=== PATIENT | male | born 1965 | race Caucasian/White ===

== ENCOUNTER 2016-11-08 09:20 | Outpatient (CLI) | payer MEDICAID ==
[~2016-11-08] VITALS: Ht 170.2 cm; Wt 117.3 kg
[~2016-11-08 09:20] MED LIST: ALB0.5V; ATEN-155; ATOR10TA; CLON1TAB36; DICY20TA57; EZET1TAB44; FENO145T2; MULT-608; OMEP-10; OXC5T; OXYC20TA4; SERT100T
[2016-11-08] MEDS ORDERED: ALBU90AE IH (09:36)
[2016-11-08] MEDS ORDERED: PANT40TA2 PO (09:36)
[2016-11-08] MEDS ORDERED: RANI300T6 PO (09:36)
[2016-11-08] MEDS ORDERED: ASPI-586 PO (09:36)
[2016-11-08] MEDS ORDERED: EXEN2VIA SQ (09:36)
[2016-11-08] MEDS ORDERED: ALPR0.5T PO (09:36)
[2016-11-08] MEDS ORDERED: TRAM50TA2 PO (09:36)
[2016-11-08] MEDS ORDERED: IBUP200C75 PO (09:36)
[2016-11-08 09:43] VITALS: BP 126/84
== END 2016-11-08 10:01 | disposition home or self-care (01) ==
LOC: PREOP 09:20
PROVIDERS: ATTEND Orthopaedic Surgery
DX: Z01.818 Encounter for other preprocedural examination (principal); Z11.2 Encounter for screening for other bacterial diseases; M75.42 Impingement syndrome of left shoulder
CPT/HCPCS: 87081

== ENCOUNTER 2016-11-14 06:05 | Day surgery (SDC) | payer MEDICAID ==
--- NOTE | 2016-11-06 12:25 | HISTORY AND PHYSICAL ---
DATE OF SERVICE: LAST-FOUR SOCIAL SECURITY: 5454. REASON FOR ADMISSION: Outpatient surgery on 11/14/16 for left shoulder arthroscopy with rotator cuff repair. HISTORY OF PRESENT ILLNESS: The patient is a 51-year-old right-hand dominant gentleman who injured his left shoulder when a shelf fell. He caught it with his left arm and felt a tearing sensation in his left shoulder. He reports no antecedent pain. He reports pain with lifting his arm with overhead activities. He worked on a home exercise program without relief. An MRI relieved a full-thickness supraspinatus tear and due to functional impairment and failure to improve with conservative measures, the patient has elected to proceed with surgical intervention. REVIEW OF SYSTEMS: No chest pain. No shortness of breath. No dysuria. PAST MEDICAL HISTORY: Irritable bowel syndrome, restless leg syndrome, chronic bronchitis, and obesity. PAST SURGICAL HISTORY: Lung, right distal clavicle excision, right knee arthroscopy, right elbow internal fixation, and cholecystectomy. FAMILY HISTORY: Significant for cancer, diabetes, hypertension. PRIMARY CARE PROVIDER: Dr. Flanagan. MEDICATIONS: Ibuprofen, alprazolam, Bydureon, ranitidine, pantoprazole, ProAir, aspirin and hydrocodone. ALLERGIES: BIAXIN, CHANTIX, MORPHINE AND ZITHROMAX, BEE VENOM. SOCIAL HISTORY: The patient is a former smoker. He denies alcohol use. PHYSICAL EXAMINATION: GENERAL: The patient is well-developed and well-nourished, in no acute distress. HEENT: Normocephalic, atraumatic. Pupils are equal, round and reactive to light. Oropharynx is clear. NECK: Supple with no lymphadenopathy. LUNGS: Clear to auscultation bilaterally. HEART: Regular rate and rhythm. ABDOMEN: Soft, nontender, and nondistended. EXTREMITIES: The left shoulder demonstrates no atrophy. He has active forward elevation of 170 degrees, but painful beyond 90. External rotation is symmetric at 70 degrees. Internal rotation is to his upper lumbar spine. He has weakness with abduction and external rotation in the left shoulder. He has a positive Neer's and positive Cummins sign. He is nontender over his acromioclavicular joint and has no pain with cross-body adduction. IMPRESSION: Left shoulder rotator cuff tear. PLAN: Left shoulder arthroscopy, acromioplasty, and open rotator cuff repair. The risks, benefits, options, ramifications, and recovery have been discussed at length with the patient. He understands and wishes to proceed. Job ID: [id number] DocumentID: [id number] Dictated Date: 11/06/2016 09:22:26 Keg Varnisher Date: 11/06/2016 10:23:29 Dictated By: IVETTE BARNETT MD
[~2016-11-14] VITALS: Ht 170.2 cm; Wt 117.3 kg
[~2016-11-14 06:05] MED LIST changes: +ALBU90AE IH; +ALPR0.5T PO; +ASPI-586 PO; +EXEN2VIA SQ; +IBUP200C75 PO; +PANT40TA2 PO; +RANI300T6 PO; +TRAM50TA2 PO
[2016-11-14] MEDS ORDERED: NS (IVPB) 50 ML ONE (06:30)
[2016-11-14] MEDS ORDERED: ceFAZolin 1,000 MG (ANCEF) VIAL ONE (06:30)
[2016-11-14] MEDS ORDERED: FAMOTIDINE 20MG/2ML IV (PEPCID) ONE (06:31)
[2016-11-14] MEDS ORDERED: LACTATED RINGERS 1,000 ML IV PRN (06:46)
[2016-11-14] MEDS: LACTATED RINGERS 1,000 ML IV PRN ×2 (06:48→08:40)
[2016-11-14] MEDS ORDERED: ROPIVACAINE 5MG/ML 30ML VIAL ONE (06:51)
[2016-11-14 07:00] VITALS: BP 145/90
[2016-11-14] MEDS ORDERED: FAMOTIDINE 20MG/2ML IV (PEPCID) IV ONE (07:00)
[2016-11-14] MEDS ORDERED: ceFAZolin 1 GM/NS 50 ML IVPB IV ONE ×2 (07:00)
[2016-11-14] MEDS ORDERED: CATHETER FLUSH 10 ML SYR IV PRN (07:00)
--- NOTE | 2016-11-14 07:29 | Progress Note-Pre Operative ---
Pre-Operative Progress Note H&P Reviewed The H&P was reviewed, patient examined and no changes noted. Date Seen by Provider: Nov 14, 2016 Time Seen by Provider: 07:11 Date H&P Reviewed: Nov 14, 2016 Time H&P Reviewed: 07:11 Pre-Operative Diagnosis: LEFT ROTATOR CUFF TEAR IVETTE BARNETT MD Nov 14, 2016 07:29
[2016-11-14] MEDS ORDERED: oxyCODONE/APAP 5/325MG (PERCOCET 5) TABLET PO PRN (07:30)
--- NOTE | 2016-11-14 07:30 | Progress Note-Post Operative ---
Post-Operative Progess Note Surgeon (s)/All Around Gear Machine Operator (s) Surgeon IVETTE BARNETT MD All Around Gear Machine Operator: Sharif Pearce Pre-Operative Diagnosis LEFT ROTATOR CUFF TEAR Post-Operative Diagnosis left rotator cuff tear, SLAP tear, and labral tear Procedure & Operative Findings Date of Procedure 11/14/16 Procedure Performed/Findings left shoulder arthroscopic biceps tenotomy, labral debridement, acromioplasty and open rotator cuff repair Anesthesia Type GETA plus interscalene Estimated Blood Loss Estimated blood loss (mL): minimal Specimens/Packing Specimens Removed none Packing: none IVETTE BARNETT MD Nov 14, 2016 07:30
[2016-11-14] MEDS ORDERED: ESMOLOL 100 MG/10 ML (BREVIBLOC) VIAL ONE (08:16)
[2016-11-14] MEDS ORDERED: PHENYLEPHRINE 100 MCG/ML 10 ML (ANESTHESIA) SYR ONE (08:26)
[2016-11-14] MEDS ORDERED: GLYCOPYRROLATE 0.2 MG/ML (ROBINUL) 2 ML VIAL ONE (08:45)
[2016-11-14] MEDS ORDERED: NEOSTIGMINE (BLOXIVERZ ) 1 MG/1ML 10 ML VIAL ONE (08:45)
[2016-11-14] MEDS ORDERED: LACTATED RINGERS 2,000 ML IV ONE (08:45)
[2016-11-14] MEDS ORDERED: HYDROmorphone (DILAUDID) 2 MG/ML VIAL ONE (09:03)
[2016-11-14] MEDS: HYDROmorphone (DILAUDID) 2 MG/ML VIAL IVP PRN ×4 (09:10→09:37)
[2016-11-14] MEDS ORDERED: MEPERIDINE (DEMEROL) INJ 50 MG/ML IVP PRN (09:15)
[2016-11-14] MEDS ORDERED: ONDANSETRON 4 MG/2 ML (SDV) Z0FRAN IVP PRN (09:15)
[2016-11-14 09:55] VITALS: BP 139/88
[2016-11-14 10:25] VITALS: BP 134/98
[2016-11-14] MEDS ORDERED: OXYC-471 PO (10:29)
[2016-11-14 10:55] VITALS: BP 128/90
--- NOTE | 2016-11-14 13:03 | OPERATIVE REPORT ---
DATE OF SERVICE: 11/14/2016 PREOPERATIVE DIAGNOSIS: Left shoulder rotator cuff tear. POSTOPERATIVE DIAGNOSES: 1. Left shoulder rotator cuff tear. 2. Left shoulder SLAP tear. 3. Left shoulder labral tear. PROCEDURES: 1. Left shoulder arthroscopic biceps tenotomy. 2. Left shoulder arthroscopic labral debridement. 3. Left shoulder arthroscopic acromioplasty. 4. Left shoulder open rotator cuff repair. SURGEON: Thad Barnett MD WARP DRESSER: DOMINICK Galeas, who assisted throughout the procedure and closed the incisions. ANESTHESIA: General endotracheal plus interscalene nerve block as per my request for postoperative pain management by Dr. Hobson. ESTIMATED BLOOD LOSS: Minimal. DRAINS: None. COMPLICATIONS: None. POSTOPERATIVE PLAN: Passive range of motion and sling wear for 4 weeks. The patient was transported to the recovery room awake and in stable condition. STATEMENT OF MEDICAL NECESSITY: The patient is a 51-year-old [id number] gentleman who injured his left shoulder when a shelf fell and felt a tearing sensation and his left shoulder has had weakness since that point. An MRI confirmed a full thickness supraspinatus tear and due to weakness and functional impairment and failure to improve with conservative measures, the patient elected to proceed with operative intervention. Examination under anesthesia revealed forward elevation of 170 degrees, external rotation of 85 degrees, and internal rotation of 75 degrees. Arthroscopic findings demonstrated a 1 x 1 cm supraspinatus full thickness tear. There was a type 2 SLAP tear with a flap tear of the anterior labrum from the 9 to 12 o'clock positions. The glenoid and humeral head demonstrated no gross chondral abnormalities. The remainder of the labrum was intact. Subacromial space demonstrated moderate bursitis with sloping of the anterior and lateral acromion. PROCEDURE IN DETAIL: After risks and benefits of procedure were discussed and questions were answered, an informed consent was signed and placed on the chart. The operative site was confirmed in the preoperative holding area initialed by the surgeon. The patient was then transported to the operating room and after adequate levels of general endotracheal anesthetic were obtained, a timeout was called, confirmed the operative site. The left upper extremity was then prepped and draped in the usual sterile fashion. The shoulder joint was injected with 20 mL of fluid, as was the subacromial space and a standard posterior portal was placed and under direct visualization, anterior portal was created in the interval between the biceps, subscapularis and glenoid. The biceps anchor was released and the stump was debrided with the shaver. The anterior labral flap was debrided with the shaver back to the stable edge as well. The scope was then redirected into the subacromial space and a lateral portal was created and bursectomy was performed. The acromion was planed to a flat type 1 acromion. The lateral port was then extended. The deltoid was split in line with leaving attached to the acromion. The rotator cuff was mobilized and a single was placed and modified Andrea-Woodrow repair was performed with an excellent repair obtained. No undue tension was noted at the arm at the side. The wound was copiously irrigated. The deltoid was repaired in aghs-jr-zryt fashion using #2 FiberWire in [id number] interrupted fashion. The wound was further irrigated, 2-0 Vicryl was used to reapproximate the subcutaneous tissues and skin was closed with 4-0 nylon in a running alternating horizontal mattress fashion. The port sites were closed with 4-0 nylon in a simple interrupted fashion. The incisions were infiltrated with plain Marcaine. A soft dressing and sling were applied and the patient was transported to the recovery room awake and in stable condition. Job ID: [id number] DocumentID: [id number] Dictated Date: 11/14/2016 08:59:25 Stock Wetter Date: 11/14/2016 11:11:40 Dictated By: THAD BARNETT MD
[2016-11-14] MEDS ORDERED: SEVOFLURANE (ULTANE) 15 ML INHAL SOLN ONE (14:30)
[2016-11-14] MEDS ORDERED: proPOfol 200 MG/20 ML (DIPRIVAN) VIAL IV ONE (14:30)
[2016-11-14] MEDS ORDERED: ROCURONIUM 50 MG/5 ML (ZEMURON) VIAL IV ONE (14:30)
[2016-11-14] MEDS ORDERED: fentaNYL INJECTION 100 MCG/2 ML AMP ONE (14:31)
[2016-11-14] MEDS ORDERED: MIDAZOLAM 2 MG/2 ML (VERSED) VIAL ONE (14:31)
[2016-11-14] MEDS ORDERED: ONDANSETRON 4 MG/2 ML (SDV) Z0FRAN ONE (14:32)
--- OUTSIDE RECORDS SUMMARY | 2016-11-15 17:56 | XMS REPORT ---
Author Author IVETTE VIDES [facility] Address [address] [place], [place] [id number] Care Team Providers Care Educational Sign Language Interpreter Name Role Phone IVETTE VIDES PCP Unavailable Allergies and Adverse Reactions Name Reaction Notes morphine anaphylaxis azithromycin anaphylaxis Biaxin anaphylaxis Chantix Rash Lyrica Swelling Plan of Treatment Not available. Medications Active Name Start Date Estimated Completion Date SIG Comments Tricor 48 mg oral tablet 01/16/2015 02/15/2015 take 1 tablet by oral route daily for 30 days Protonix 40 mg oral tablet,delayed release (DR/EC) 01/16/2015 03/17/2015 take 1 tablet (40 mg) by oral route once daily for 30 days Aspir-81 81 mg oral tablet,delayed release (DR/EC) 01/16/2015 02/15/2015 take 1 tablet (81 mg) by oral route once daily for 30 days [place] 5-325 mg oral tablet 01/16/2015 02/15/2015 take 1 tablet by oral route every 6 hours as needed for pain for 30 days Xanax 0.5 mg oral tablet 01/16/2015 02/15/2015 1/2 to 1 twice daily as needed for anxiety must last 30 days Celexa 40 mg oral tablet 01/16/2015 03/17/2015 take 1 tablet by oral route daily for 30 days Abilify 30 mg oral tablet 01/16/2015 02/15/2015 take 1 tablet by oral route daily for 30 days meloxicam 7.5 mg oral tablet 01/16/2015 02/15/2015 take 1 tablet (7.5 mg) by oral route once daily for 30 days Problem List Description Status Onset Depressive Disorder Active 01/16/2015 Anxiety Disorder Active 01/16/2015 Chronic pain Active 01/16/2015 Low Back Pain Active 01/16/2015 Hyperlipidemia, unspecified Active 01/16/2015 Gastroesophageal Reflux Active 01/16/2015 Vital Signs Date Time BP-Sys(mm[Hg] BP-Charlene(mm[Hg]) HR(bpm) RR(rpm) Temp WT HT HC BMI BSA BMI Percentile O2 Sat(%) 01/04/2015 9:19:00 AM 140 mmHg 80 mmHg 72 bpm 18 rpm 97.2 F 188 lbs 67 in 29.44 kg/m2 2.01 m2 98 % Social History Name Description Comments smoking Current every day Alcohol Never Uses seatbelts Current every day Exercises regularly Current every day History of Procedures Not available. Results Summary Not available. History Of Immunizations Not available. History of Past Illness Name Date of Onset Comments Depressive Disorder 01/16/2015 Anxiety Disorder 01/16/2015 Chronic pain 01/16/2015 Low Back Pain 01/16/2015 Hyperlipidemia, unspecified 01/16/2015 Gastroesophageal Reflux 01/16/2015 Hemorrhoids Arthritis COPD (chronic obstructive pulmonary disease) indigestion Gastroesophageal Reflux Jan 04 2015 9:20AM Hyperlipidemia, unspecified Jan 04 2015 9:20AM Low Back Pain Jan 04 2015 9:20AM Chronic pain Jan 04 2015 9:20AM Anxiety Disorder Jan 04 2015 9:20AM Depressive Disorder Jan 04 2015 9:20AM Payers Not available. History of Encounters Visit Date Visit Type Provider 01/04/2015 Office visit IVETTE LEVINE
--- OUTSIDE RECORDS SUMMARY | 2016-11-15 17:56 | XMS REPORT ---
Author Author IVETTE VIDES [facility] Address [address] [place], [place] [id number] Care Team Providers Care Family Medicine Physician Name Role Phone IVETTE VIDES PCP Unavailable Allergies and Adverse Reactions Name Reaction Notes morphine anaphylaxis azithromycin anaphylaxis Biaxin anaphylaxis Chantix Rash Lyrica Swelling Plan of Treatment Not available. Medications Active Name Start Date Estimated Completion Date SIG Comments Xanax 0.5 mg oral tablet 03/02/2015 04/01/2015 1/2 to 1 twice daily as needed for anxiety must last 30 days Name Start Date Expiration Date SIG Comments Tricor 48 mg oral [...] oral route once daily for 30 days [place] 5-325 mg oral tablet 01/16/2015 02/15/2015 take 1 tablet by oral route every 6 hours as needed for pain for 30 days Celexa 40 mg oral tablet [...] unspecified Active 01/16/2015 Gastroesophageal Reflux Active 01/16/2015 Tobacco Abuse Active 03/21/2015 Vital Signs Date Time BP-Sys(mm[Hg] BP-Charlene(mm[Hg]) HR(bpm) RR(rpm) Temp WT HT HC BMI BSA BMI Percentile O2 Sat(%) 03/10/2015 9:17:00 AM 145 mmHg 70 mmHg 86 bpm 16 rpm 99.4 F 205 lbs 67 in 32.11 kg/m2 2.10 m2 98 % 01/04/2015 9:19:00 AM 140 mmHg 80 mmHg 72 bpm 18 rpm 97.2 F 188 lbs 67 in 29.4447 kg/m 2.0078 m 98 % Social History Name Description Comments smoking Current every day Alcohol Never Uses seatbelts Current every day Exercises regularly Current every day History of Procedures Date Ordered Description Order Status 03/10/2015 12:00 AM COMPLETE CBC W/AUTO DIFF WBC Returned 03/10/2015 12:00 AM COMPREHEN METABOLIC PANEL Returned 03/10/2015 12:00 AM LIPID PANEL Returned 03/10/2015 12:00 AM ROUTINE VENIPUNCTURE Reviewed Results Summary Data and Description Results 03/10/2015 3:53 PM WBC 9.2 RBC 5.26 HGB 17.30 g/dLHCT 49.40 %MCV 94.0 fLMCH 32.90 pgMCHC 35.0 g/dLRDW CV 13.40 %MPV 10.10 fLPLT 177 %NEUT 73.20 %%LYMP 18.10 %%MONO 5.50 %%EOS 3.0 %%BASO 0.20 %#NEUT 6.75 #LYMP 1.67 #MONO 0.51 #EOS 0.28 #BASO 0.02 GLUCOSE 107.0 mg/dLSODIUM 136.0 mmol/LPOTASSIUM 4.30 mmol/ LCHLORIDE 103.0 mmol/LCO2 27.0 mmol/LBUN 10.0 mg/dLCREATININE 0.80 mg/dLSGOT/ AST 14.0 IU/LSGPT/ALT 14.0 IU/LALK PHOS 49.0 IU/LTOTAL PROTEIN 6.60 g/dLALBUMIN 4.10 g/dLTOTAL BILI 0.80 mg/dLCALCIUM 9.30 mg/dLeGFR >60 mL/min/1.73m TRIGLYCERIDES 148.0 mg/dLCHOLESTEROL 256.0 mg/dLHDL 43.0 mg/dLLDL (CALC) 183.0 mg/dL History Of Immunizations Not available. History of Past Illness Name Date of Onset Comments Depressive Disorder 01/16/2015 Anxiety Disorder 01/16/2015 Chronic pain 03/21/2015 Low Back Pain 01/16/2015 Hyperlipidemia, unspecified 01/16/2015 Gastroesophageal Reflux 01/16/2015 Hemorrhoids Arthritis COPD (chronic obstructive pulmonary disease) indigestion Tobacco Abuse 03/21/2015 Gastroesophageal Reflux Jan 04 2015 9:20AM Hyperlipidemia, unspecified Jan 04 2015 9:20AM Low Back Pain Jan 04 2015 9:20AM Chronic pain Jan 04 2015 9:20AM Anxiety Disorder Jan 04 2015 9:20AM Depressive Disorder Jan 04 2015 9:20AM Fatigue Mar 10 2015 11:16AM Hyperlipemia Mar 10 2015 11:16AM Diabetes Mellitus, Type II Mar 10 2015 9:18AM Hyperlipidemia, unspecified Mar 10 2015 9:18AM Low Back Pain Mar 10 2015 9:18AM Chronic pain Mar 10 2015 9:18AM Depressive Disorder Mar 10 2015 9:18AM Tobacco Abuse Mar 10 2015 9:18AM Dietary Counseling Mar 10 2015 9:18AM Exercise Counseling Mar 10 2015 9:18AM Body Mass Index [BMI]; body mass index between 30-39, adult; body mass index 32.0-32.9, adult Mar 10 2015 9:18AM Gastroesophageal Reflux Mar 10 2015 9:18AM Payers Insurance Name Company Name Plan Name Plan Number Policy Number Policy Group Number Start Date [facility] [place] State Plan [facility] State Plan [id number] N/A History of Encounters Visit Date Visit Type Provider 03/10/2015 Laboratory IVETTE LEVINE 01/04/2015 Office visit IVETTE LEVINE
--- OUTSIDE RECORDS SUMMARY | 2016-11-15 17:56 | XMS REPORT ---
Author Author IVETTE VIDES [facility] Address [address] [place], [place] [id number] Care Team Providers Care Tunnel Elastic Operator Lockstitch Name Role Phone IVETTE VIDES PCP Unavailable Allergies and Adverse Reactions Name Reaction Notes morphine anaphylaxis azithromycin anaphylaxis Biaxin anaphylaxis Chantix Rash Lyrica Swelling Plan of Treatment Planned Activity Comments Planned Date Planned Time Plan/Goal COMPLETE CBC W/AUTO DIFF WBC 03/10/2015 12:00 AM COMPREHEN METABOLIC PANEL 03/10/2015 12:00 AM LIPID PANEL 03/10/2015 12:00 AM Medications Active Name Start Date Estimated Completion Date SIG Comments Protonix 40 mg oral tablet,delayed release (DR/EC) 01/16/2015 03/17/2015 take 1 tablet (40 mg) by oral route once daily for 30 days Celexa 40 mg oral tablet 01/16/2015 03/17/2015 take 1 tablet by oral route daily for 30 days Xanax 0.5 mg oral tablet 03/02/2015 04/01/2015 1/2 to 1 twice daily as needed for anxiety must last 30 days Name Start Date Expiration Date SIG Comments Tricor 48 mg oral tablet 01/16/2015 02/15/2015 take 1 tablet by oral route daily for 30 days Aspir-81 81 mg oral tablet,delayed release (DR/EC) 01/16/2015 02/15/2015 take 1 tablet (81 mg) by oral route once daily for 30 days [place] 5-325 mg oral tablet 01/16/2015 02/15/2015 take 1 tablet by oral route every 6 hours as needed for pain for 30 days Abilify 30 mg oral [...] Ordered Description Order Status 03/10/2015 12:00 AM ROUTINE VENIPUNCTURE Reviewed Results Summary Not available. History Of Immunizations [...] 2015 11:16AM Hyperlipemia Mar 10 2015 11:16AM Payers Insurance Name Company Name Plan Name Plan Number Policy Number Policy Group Number Start Date [employer] - [place] - [place] State Plan [employer] - [facility] [place] State Plan [id number] N/A History of Encounters Visit Date Visit Type Provider 03/10/2015 Laboratory IVETTE LEVINE 01/04/2015 Office visit IVETTE LEVINE
--- OUTSIDE RECORDS SUMMARY | 2016-11-15 17:56 | XMS REPORT ---
Author Author IVETTE VIDES [facility] Address [address] [place], [place] [id number] Care Team Providers Care Dining Host Name Role Phone IVETTE VIDES PCP Unavailable Allergies and Adverse Reactions Name Reaction Notes morphine anaphylaxis azithromycin anaphylaxis Biaxin anaphylaxis Chantix Rash Lyrica Swelling Plan of Treatment Not available. Medications Active Name Start Date Estimated Completion Date SIG Comments Aspir-81 81 mg oral tablet,delayed release (DR/EC) 03/28/2015 09/24/2015 take 1 tablet (81 mg) by oral route once daily for 30 days Celexa 40 mg oral tablet 03/28/2015 09/24/2015 take 1 tablet by oral route daily for 30 days meloxicam 7.5 mg oral tablet 03/28/2015 09/24/2015 take 1 tablet (7.5 mg) by oral route once daily for 30 days Protonix 40 mg oral tablet,delayed release (DR/EC) 03/28/2015 09/24/2015 take 1 tablet (40 mg) by oral route once daily for 30 days Xanax 0.5 mg oral tablet 03/28/2015 09/24/2015 1/2 to 1 twice daily as needed for anxiety must last 30 days Crestor 20 mg oral tablet 03/28/2015 06/26/2015 take 1 tablet (20 mg) by oral route once daily for 30 days Wellbutrin SR 150 mg oral tablet extended release 03/28/2015 06/26/2015 take 1 tablet (150 mg) by oral route 2 times per day for 30 days Name Start Date Expiration Date SIG Comments [place] 5-325 mg oral tablet 01/16/2015 02/15/2015 take 1 tablet by oral route every 6 hours as needed for pain for 30 days Discontinued Name Start Date Discontinued Date SIG Comments Tricor 48 mg oral tablet 01/16/2015 03/28/2015 take 1 tablet by oral route daily for 30 days Abilify 30 mg oral tablet 03/28/2015 03/28/2015 take 1 tablet by oral route daily for 30 days Problem List Description Status Onset Depressive Disorder Active 01/16/2015 Anxiety Disorder Active 01/16/2015 Chronic pain Active 01/16/2015 Low Back Pain Active 01/16/2015 Hyperlipidemia, unspecified Active 01/16/2015 Gastroesophageal Reflux Active 01/16/2015 Tobacco Abuse Active 03/21/2015 Vital Signs Date Time BP-Sys(mm[Hg] BP-Charlene(mm[Hg]) HR(bpm) RR(rpm) Temp WT HT HC BMI BSA BMI Percentile O2 Sat(%) 03/28/2015 9:38:00 AM 140 mmHg 82 mmHg 82 bpm 16 rpm 98.7 F 206 lbs 67 in 32.26 kg/m2 2.10 m2 98 % 03/10/2015 9:17:00 AM 145 mmHg 70 mmHg 86 bpm 16 rpm 99.4 F 205 lbs 67 in 32.1072 kg/m 2.0966 m 98 % 01/04/2015 9:19:00 AM 140 mmHg [...] 9:18AM Gastroesophageal Reflux Mar 10 2015 9:18AM Essential Hypertension Mar 28 2015 9:42AM Type 2 diabetes mellitus without complication Mar 28 2015 9:42AM Chronic Hyperlipidemia, unspecified Mar 28 2015 9:42AM Bilateral low back pain with sciatica, sciatica laterality unspecified Mar 28 2015 9:42AM Other chronic pain Mar 28 2015 9:42AM Generalized anxiety disorder Mar 28 2015 9:42AM Moderate Chronic Depressive Disorder Mar 28 2015 9:42AM Chronic obstructive pulmonary disease, unspecified COPD type Mar 28 2015 9: 42AM Anxiety Disorder Mar 28 2015 9:42AM Gastroesophageal Reflux Mar 28 2015 9:42AM Tobacco Abuse Mar 28 2015 9:42AM Payers Insurance Name Company Name Plan Name Plan Number Policy Number Policy Group Number Start Date [facility] [place] State Plan [facility] [place] State Plan [id number] N/A History of Encounters Visit Date Visit Type Provider 03/28/2015 Office visit IVETTE LEVINE 03/10/2015 Laboratory IVETTE LEVINE 01/04/2015 Office visit IVETTE LEVINE
--- OUTSIDE RECORDS SUMMARY | 2016-11-15 17:56 | XMS REPORT | Continuity of Care Document ---
Author Author [facility] Organization [facility] Address Unknown Phone Unavailable Allergies Medications Problems Procedures Results Encounters ACCT No. Visit Date/Time Discharge Status Pt. Type Provider Facility Loc./Unit Complaint [id number] 03/28/2015 10:42:25 03/28/2015 23: 59:59 [facility] Outpatient IVETTE VIDES [id number] 03/10/2015 10:01:03 03/10/2015 23: 59:59 [facility] Outpatient IVETTE VIDES [id number] 01/04/2015 09:41:22 01/04/2015 23: 59:59 [facility] Outpatient IVETTE VIDES
--- OUTSIDE RECORDS SUMMARY | 2016-11-15 17:57 | XMS REPORT ---
Author Author IVETTE VIDES [facility] Address [address] [place], [place] [id number] Care Team Providers Care Metal Stamper Name Role Phone IVETTE VIDES PCP Unavailable Allergies and Adverse Reactions Name Reaction Notes morphine anaphylaxis azithromycin anaphylaxis Biaxin anaphylaxis Chantix Rash Lyrica Swelling Plan of Treatment Not available. Medications Active Name Start Date Estimated Completion Date SIG Comments Abilify 30 mg oral tablet 03/28/2015 09/24/2015 take 1 [...] oral route once daily for 30 days Name Start Date Expiration Date SIG Comments [place] 5-325 mg oral tablet 01/16/2015 02/15/2015 take [...] Policy Group Number Start Date [employer] [facility] [place] [employer] [facility] [place] [id number] N/A History of Encounters Visit Date Visit Type Provider 03/28/2015 Office visit IVETTE LEVINE 03/10/2015 Laboratory IVETTE LEVINE 01/04/2015 Office visit IVETTE LEVINE
== END 2016-11-14 11:19 | disposition home or self-care (01) ==
LOC: SDC 06:05
PROVIDERS: ATTEND Orthopaedic Surgery
DX: S46.012A Strain of muscle(s) and tendon(s) of the rotator cuff of left shoulder, initial encounter (principal); S43.432A Superior glenoid labrum lesion of left shoulder, initial encounter; W22.8XXA Striking against or struck by other objects, initial encounter; J45.909 Unspecified asthma, uncomplicated; Z86.718 Personal history of other venous thrombosis and embolism; K21.9 Gastro-esophageal reflux disease without esophagitis; E11.9 Type 2 diabetes mellitus without complications; E66.01 Morbid (severe) obesity due to excess calories; Z79.899 Other long term (current) drug therapy; Z68.41 Body mass index [BMI] 40.0-44.9, adult
CPT/HCPCS: 82962; 87081

== ENCOUNTER → 2018-10-22 | Outpatient (CLI) | payer MEDICAID ==
[~2018-10-22] MED LIST changes: +IBUP-2185 PO; -IBUP200C75 PO; +OXYC-471 PO
== END ==
LOC: RAD 09:30
PROVIDERS: ATTEND Orthopaedic Surgery
DX: M75.111 Incomplete rotator cuff tear or rupture of right shoulder, not specified as traumatic (principal); Z53.8 Procedure and treatment not carried out for other reasons

== ENCOUNTER 2018-12-28 21:00 | Emergency (ER) | payer MEDICAID ==
[~2018-12-28] VITALS: Ht 170.2 cm; Wt 115.7 kg
[2018-12-28] MEDS ORDERED: RX-OFLOXACIN 0.3% OPHTH SOLN 5 ML ONE (21:23)
--- NOTE | 2018-12-28 21:33 | ED EENT ---
History of Present Illness General Chief Complaint: Ear Problems Stated Complaint: EAR, JAW, HEAD PAIN Source: patient, family Exam Limitations: no limitations History of Present Illness Date Seen by Provider: Dec 28, 2018 Time Seen by Provider: 21:29 Initial Comments This 53-year-old gentleman presents with history of having pain in his right ear which radiates to the right side of his head as well as his right jaw. He has had these problems for over 4 months and has been on several different antibiotics and has been following with his physician and has an appointment with an ear nose and throat physician Timing/Duration: gradual, other (present for the past 4 months.) Severity: moderate Location: ear (R) Prearrival Treatment: prescription meds Associated Symptoms: denies symptoms Allergies and Home Medications Allergies Coded Allergies: hydrocodone (Verified Allergy, Severe, ANAPHYLAXIS, PT HAS RECEIVED PERCOCET IN THE PAST, 11/14/16) morphine (Unverified Allergy, Intermediate, RASH, THROAT SWELLS, 11/08/16) azithromycin (Unverified Allergy, Mild, 11/08/16) clarithromycin (Unverified Allergy, Mild, 11/08/16) varenicline (Unverified Allergy, Mild, 11/08/16) Uncoded Allergies: TAPE (Allergy, Mild, 08/17/09) Home Medications Albuterol Sulfate 90 Mcg Aer.pow.ba, 2 PUFF IH Q6H PRN for SHORTNESS OF BREATH, (Reported) Alprazolam 0.5 Mg Tablet, 0.5 MG PO BID PRN for ANXIETY, (Reported) Aspirin 81 Mg Tablet.dr, 81 MG PO DAILY, (Reported) Exenatide Microspheres 2 Mg Vial, 2 MG SQ WEEK, (Reported) Ibuprofen 200 Mg Capsule, 200 MG PO Q6H PRN for PAIN-MODERATE, (Reported) Oxycodone HCl/Acetaminophen 1 Each Tablet, 1-2 TAB PO Q4H PRN for PAIN Prescribed by: ALEXIA HERNANDEZ on 11/14/16 1029 Pantoprazole Sodium 40 Mg Tablet.dr, 40 MG PO DAILY, (Reported) Ranitidine HCl 300 Mg Tablet, 300 MG PO HS, (Reported) Tramadol HCl 50 Mg Tablet, 100 MG PO Q6H, (Reported) Patient Home Medication List Home Medication List Reviewed: Yes Review of Systems Review of Systems Constitutional: no symptoms reported Eyes: See HPI Ears: See HPI Nose: no symptoms reported, see HPI Mouth: see HPI Throat: no symptoms reported, see HPI Respiratory: no symptoms reported Cardiovascular: no symptoms reported Gastrointestinal: no symptoms reported Musculoskeletal: no symptoms reported Skin: no symptoms reported Neurological: Anxiety Hematologic/Lymphatic: No Symptoms Reported Immunological/Allergic: no symptoms reported Past Tjlbcjw-Mlnlkg-Dlzrtu Hx Past Med/Social Hx: Reviewed Nursing Past Med/Soc Hx Patient Social History Type Used: Cigarettes Former Smoker, Quit: Nov 08, 2014 Recent Foreign Travel: No Contact w/Someone Who Travel: No Recent Hopitalizations: No Immunizations Up To Date Tetanus Booster (TDap): Unknown Seasonal Allergies Seasonal Allergies: No Past Medical History Gallbladder, Vasectomy Asthma, COPD Deep Vein Thrombosis Headaches /Migraines Reproductive Disorders: No Sexually Transmitted Disease: No HIV/AIDS: No Gastroesophageal Reflux, Diverticulosis, Polyps, Ulcer, Irritable Bowel Degenerate Disk Disease, Arthritis, Chronic Back Pain Loss of Vision: Bilateral Hearing Impairment: Denies Anxiety Eczema Adverse Reaction/Blood Tranf: No (N/A) Physical Exam Height, Weight, BMI Height: 5'7.00" Weight: 258lbs. 8.0oz. [id number]; 40.5 BMI Method: General Appearance: WD/WN, no apparent distress, mild distress, moderate distress, severe distress, cachetic Eyes: right eye normal inspection, right eye PERRL, right eye EOMI, right eye abnormal EOM; bilateral eye normal inspection, bilateral eye PERRL, bilateral eye EOMI, bilateral eye abnormal EOM, bilateral eye abnormal pupil, bilateral eye A-V nicking, bilateral eye conjunctival hemorrhage, bilateral eye conjunctival inflammation Ears: right ear erythema, right ear swelling, right ear tenderness, right ear TM red; bilateral ear auricle normal, bilateral ear TM normal Nose: No normal inspection Mouth/Throat: normal mouth inspection, pharynx normal Neck: full range of motion, supple, normal inspection Cardiovascular: normal peripheral pulses, regular rate, rhythm Respiratory: no respiratory distress, no accessory muscle use Gastrointestinal: non tender, soft, tenderness, spleenomegaly Neurologic/Psychiatric: no motor/sensory deficits, alert, normal mood/affect, oriented x 3 Skin: normal color, warm/dry Progress/Results/Core Measures Results/Orders My Orders Orders - SONY DIAZ MD Wrist 3 View Right (12/28/18 21:11) Elbow 2 View Right (12/28/18 21:11) Progress Progress Note : Time: 21:35 Progress Note The patient has erythema of his right ear canal as well as some wax in his ear canal. The ear canal was cleansed with an ear curet and then irrigated with warm water until most of the wax was removed. The ear was dried and then a cotton wick was placed in the ear Placed was placed on Cipro otic drops. Will be placed on Cipro 500 mg by mouth twice a day. He will also be given a Medrol Dosepak. He will be given [place] for pain Departure Impression Primary Impression: Recurrent otitis externa of right ear Additional Impression: Otitis media of right ear Disposition: HOME, SELF-CARE Condition: Stable Departure-Patient Inst. Referrals: TRAV DEGROOT MD (PCP/Family) Primary Care Physician Patient Instructions: Ear Infections (Otitis Media) (DC), Ear Infections (Otitis Media), Outer Ear Infection, Outer Ear Infection (DC) Add. Discharge Instructions: Removed the wick from the right ear with tweezers after about 3 days. Take medications as directed. Watch your blood sugar carefully as the steroids will increase your blood sugar. Please follow-up with the ears nose and throat doctor All discharge instructions reviewed with patient and/or family. Voiced understanding. Scripts Methylprednisolone (Medrol) 4 Mg Tab.ds.pk 4 MG PO UD for 6 Days, #21 PKG PER DOSE PACK INSTRUCTIONS Prov: SONY DIAZ MD 12/28/18 Hydrocodone/Acetaminophen ([place] 5-325 Tablet) 1 Each Tablet 1 TAB PO Q6H for Pain MDD 10 TABS for 7 Days, #10 TAB Prov: SONY DIAZ MD 12/28/18 Ciprofloxacin HCl (Cipro) 500 Mg Tablet 500 MG PO BID for 7 Days, TAB Prov: SONY DIAZ MD 12/28/18 SONY DIAZ MD Dec 28, 2018 21:33
[2018-12-28] MEDS ORDERED: CIPR-225 PO (21:43)
[2018-12-28] MEDS ORDERED: HYDR-4226 PO (21:43)
[2018-12-28] MEDS ORDERED: METH4TAB PO (21:46)
[2018-12-28] MEDS ORDERED: RX-OXYCODONE/APAP 5-325 MG #4 TAB PK PO ONE (21:50)
[2018-12-28] MEDS ORDERED: oxyCODONE/APAP 5/325MG (PERCOCET 5) TABLET ONE (21:53)
[2018-12-28] MEDS ORDERED: oxyCODONE/APAP 5/325MG (PERCOCET 5) TABLET PO ONE (22:00)
[2018-12-28 22:02] VITALS: BP 151/99
== END 2018-12-28 22:08 | disposition home or self-care (01) ==
LOC: EDUNIT# 21:00 → ER FS 21:01
DX: H60.91 Unspecified otitis externa, right ear (principal); H66.91 Otitis media, unspecified, right ear; J45.909 Unspecified asthma, uncomplicated; G43.909 Migraine, unspecified, not intractable, without status migrainosus; F41.9 Anxiety disorder, unspecified; K21.9 Gastro-esophageal reflux disease without esophagitis; K58.9 Irritable bowel syndrome, unspecified; H54.7 Unspecified visual loss; Z87.19 Personal history of other diseases of the digestive system; Z86.718 Personal history of other venous thrombosis and embolism; Z88.5 Allergy status to narcotic agent; Z88.1 Allergy status to other antibiotic agents; Z88.8 Allergy status to other drugs, medicaments and biological substances; Z79.82 Long term (current) use of aspirin; Z77.22 Contact with and (suspected) exposure to environmental tobacco smoke (acute) (chronic)
CPT/HCPCS: 99283

== ENCOUNTER → 2019-01-01 | Outpatient (CLI) | payer MEDICAID ==
[~2019-01-01] MED LIST changes: +CATHETER FLUSH 10 ML SYR IV PRN; +CIPR-225 PO; +HOLD METFORMIN - RECEIVED CONTRAST 20 ML VIAL IV SCH; +HYDR-4226 PO; +IOHEXOL 350 MG/ML 100 ML (OMNIPAQUE 350) VIAL IV ONE; +METH4TAB PO; +NS 100 ML (IVPB) BAG IV ONE
[2019-01-01 09:38] LABS: BUN/CREATININE RATIO 17; CREATININE SERUM 0.89 MG/DL (0.60-1.30); GFR ESTIMATED > 60
--- NOTE | 2019-01-01 11:55 | Diagnostic Imaging Report ---
PROCEDURE: CT neck soft tissue with contrast. TECHNIQUE: Multiple contiguous axial images were obtained through the neck after the administration of contrast. Auto Exposure Controls were utilized during the CT exam to meet ALARA standards for radiation dose reduction. INDICATION: Right-sided neck pain that radiates to the jaw and ear. History of inner ear cancer. COMPARISON: None. FINDINGS: A small air-filled laryngocele is noted on the right measuring 0.9 x 0.6 cm (image 63, series 2). No associated soft tissue mass associated within the laryngeal structures. The posterior nasopharynx and oropharynx demonstrate appropriate symmetry. There is no displacement of the parapharyngeal fat planes. There is no abnormal process evident within the prevertebral or retropharyngeal space. There is no evidence of abnormal thickening of the epiglottis or aryepiglottic folds. The vocal folds appear symmetric. The visualized intracranial contents demonstrate no evidence of pathologic intracranial enhancement or intracranial mass effect. Visualized orbital contents are unremarkable. The visualized paranasal sinuses are clear. The mastoids and middle ears are clear. The parotid, submandibular and thyroid gland are unremarkable. No pathologically enlarged cervical lymph nodes are evident. No focal inflammatory changes are demonstrated. No soft tissue mass or fluid collection demonstrated. The vascular structures the neck demonstrate no evidence of high-grade stenosis on this nondedicated exam. The visualized lung apices are clear. Periapical lucencies and dental caries are seen throughout the teeth, most prominent in the right upper central and lateral incisors. The cervical spine demonstrates degenerative changes without acute abnormality. IMPRESSION: 1. Small air-filled laryngocele on the right. No associated soft tissue mass is seen within the laryngeal structures. However, direct visualization is recommended to assess for underlying mucosal lesion. No cervical lymphadenopathy is seen. 2. Periodontal disease, most prominent involving the right upper central and lateral incisors. Dictated by: Dictated on workstation # [id number]
== END ==
LOC: RAD FS 08:59
PROVIDERS: ATTEND Otolaryngology Otolaryngology/Facial Plastic Surgery
DX: K05.6 Periodontal disease, unspecified (principal); Q31.3 Laryngocele; Z85.22 Personal history of malignant neoplasm of nasal cavities, middle ear, and accessory sinuses
CPT/HCPCS: 36415; 70491; 82565; 84520

== ENCOUNTER → 2019-01-22 | Outpatient (CLI) | payer MEDICAID ==
--- NOTE | 2019-01-22 12:36 | Diagnostic Imaging Report ---
PROCEDURE: CT abdomen and pelvis with contrast. TECHNIQUE: Multiple contiguous axial images were obtained through the abdomen and pelvis after administration of intravenous contrast. Auto Exposure Controls were utilized during the CT exam to meet ALARA standards for radiation dose reduction. INDICATION: Diverticulitis COMPARISON: None available. FINDINGS: The visualized lung bases are clear. Diffusely decreased density of the liver without focal mass lesion. Cholecystectomy. The spleen is unremarkable. Tiny hiatal hernia. The adrenal glands are unremarkable. The pancreas is unremarkable. Small diverticulum arising from the second portion of the duodenum without adjacent inflammatory stranding. Subcentimeter hypodensity within the anterior aspect of the left kidney is present which is too small to completely characterize. Statistically, this likely relates to a cyst. Otherwise, the bilateral kidneys and ureters are unremarkable. Mild scattered vascular calcifications without aneurysmal dilatation of the abdominal aorta. Small fat-containing umbilical hernia. The urinary bladder is unremarkable. Small fat-containing bilateral inguinal hernias. The appendix is unremarkable. No bowel obstruction or pneumatosis. Mild colonic diverticulosis without CT evidence of diverticulitis. No significant adenopathy, free air, or free fluid within the abdomen or pelvis. Scattered osseous degenerative changes without acute osseous abnormality. IMPRESSION: 1. Colonic diverticulosis without CT evidence of diverticulitis. 2. Fatty infiltration of the liver. 3. Cholecystectomy. 4. Tiny hiatal hernia, small fat-containing umbilical hernia, and small fat-containing bilateral inguinal hernias. 5. Additional findings, as above. Dictated by: Dictated on workstation # [id number]
== END ==
LOC: RAD FS 10:10
PROVIDERS: ATTEND Family Medicine
DX: K57.92 Diverticulitis of intestine, part unspecified, without perforation or abscess without bleeding (principal); K76.0 Fatty (change of) liver, not elsewhere classified; K57.30 Diverticulosis of large intestine without perforation or abscess without bleeding; K42.9 Umbilical hernia without obstruction or gangrene; K40.20 Bilateral inguinal hernia, without obstruction or gangrene, not specified as recurrent; M19.90 Unspecified osteoarthritis, unspecified site; Z90.49 Acquired absence of other specified parts of digestive tract
CPT/HCPCS: 74177

== ENCOUNTER 2020-01-26 13:48 | Outpatient (CLI) | payer MEDICAID ==
[~2020-01-26 13:48] MED LIST changes: -CATHETER FLUSH 10 ML SYR IV PRN; -HOLD METFORMIN - RECEIVED CONTRAST 20 ML VIAL IV SCH; -IOHEXOL 350 MG/ML 100 ML (OMNIPAQUE 350) VIAL IV ONE; -NS 100 ML (IVPB) BAG IV ONE; -TRAM50TA2 PO; +TRM50T PO
== END 2020-01-26 14:07 ==
LOC: SLEEP 13:48
PROVIDERS: ATTEND Otolaryngology Otolaryngology/Facial Plastic Surgery
DX: G47.33 Obstructive sleep apnea (adult) (pediatric) (principal); G47.10 Hypersomnia, unspecified

== ENCOUNTER 2020-03-07 05:35 | Outpatient (RCR) | payer MEDICAID ==
[~2020-03-07] VITALS: Ht 170 cm; Wt 114.5 kg
[~2020-03-07 05:35] MED LIST changes: +ASPI-999 PO; +DAPA5TAB PO; +FAMO40TA6 PO; +GABA300C PO; +GBPN600T PO; +GLIM4TAB5 PO; +HYDR25TA4 PO; +METF-865 PO; +METO50TA15 PO; +PANT40TA52 PO; +PRAV20TA3 PO
== END 2020-03-07 14:42 | disposition home or self-care (01) ==
LOC: PREOP 05:35
PROVIDERS: ATTEND Orthopaedic Surgery
DX: Z01.812 Encounter for preprocedural laboratory examination (principal); Z20.828 Contact with and (suspected) exposure to other viral communicable diseases
CPT/HCPCS: 87635

== ENCOUNTER → 2020-05-25 | Outpatient (CLI) | payer MEDICAID ==
--- NOTE | 2020-05-25 08:37 | Diagnostic Imaging Report ---
PROCEDURE: CT sinuses without contrast TECHNIQUE: Multiple contiguous axial images were obtained through the sinuses without the use of intravenous contrast. Coronal and sagittal reformations were then performed. Auto Exposure Controls were utilized during the CT exam to meet ALARA standards for radiation dose reduction. INDICATION: Chronic sinusitis, post Covid. COMPARISON: 01/01/2019 FINDINGS: The frontal sinuses are clear. Minimal mucosal thickening within the left frontoethmoidal recess. The ethmoid air cells are clear. The sphenoid sinuses are clear. The maxillary sinuses are clear. The mastoid air cells and middle ear cavities are clear. No temporomandibular joint dislocation. No acute facial fracture. The bilateral ostiomeatal complexes are patent. Mild S-shaped deviation of the nasal septum. The lamina papyracea is intact. No significant gordon bullosa. Multiple teeth are absent with many of the residual teeth demonstrating periapical lucencies. The orbits are unremarkable. The muscles of mastication are unremarkable. Parapharyngeal fat is symmetric and well-maintained. IMPRESSION: Minimal mucosal thickening within the left frontoethmoidal recess. Otherwise, the paranasal sinuses are clear. Significant periodontal disease with multiple absent teeth. Dictated by: Dictated on workstation # [id number]
== END ==
LOC: RAD FS 07:43
PROVIDERS: ATTEND Otolaryngology Otolaryngology/Facial Plastic Surgery
DX: J32.9 Chronic sinusitis, unspecified (principal); K05.6 Periodontal disease, unspecified; Z86.19 Personal history of other infectious and parasitic diseases
CPT/HCPCS: 70486

== ENCOUNTER 2020-08-08 13:30 | Outpatient (RCR) | payer MEDICAID ==
[~2020-08-08 13:30] MED LIST changes: -OXYC-471 PO; +OXYC1TAB11 PO
== END 2020-11-06 | disposition home or self-care (01) ==
LOC: CARD 13:30
PROVIDERS: ATTEND Internal Medicine Cardiovascular Disease
DX: I25.10 Atherosclerotic heart disease of native coronary artery without angina pectoris (principal); I10 Essential (primary) hypertension
CPT/HCPCS: 93225; 93226; 93306

== ENCOUNTER 2020-11-23 05:41 | Outpatient (CLI) | payer MEDICAID ==
[~2020-11-23] VITALS: Ht 170.2 cm; Wt 110.9 kg
[2020-11-24] MEDS ORDERED: CETI10TA49 PO (09:54)
[2020-11-24] MEDS ORDERED: IBUP-1780 PO (09:54)
[2020-11-24] MEDS ORDERED: RIZA10TA37 PO (09:54)
[2020-11-24] MEDS ORDERED: DAPA1TAB3 PO (09:54)
[2020-11-24] MEDS ORDERED: FENO145T2 PO (09:54)
[2020-11-24] MEDS ORDERED: ROSU40TA23 PO (09:54)
[2020-11-24] MEDS ORDERED: INSU300I SQ (09:54)
[2020-11-30] MEDS ORDERED: OXYC1TAB87 PO ×2 (09:22→11:09)
== END 2020-11-24 11:23 | disposition home or self-care (01) ==
LOC: PREOP 05:41
PROVIDERS: ATTEND Orthopaedic Surgery
DX: Z01.818 Encounter for other preprocedural examination (principal)

== ENCOUNTER 2020-11-30 08:40 | Day surgery (SDC) | payer MEDICAID ==
--- NOTE | 2020-11-22 07:19 | HISTORY AND PHYSICAL ---
DATE OF SERVICE: ADMISSION HISTORY AND PHYSICAL This will be for outpatient right shoulder arthroscopy with rotator cuff repair on 11/30/2020. DATE OF ADMISSION: 11/30/2020. DATE OF SERVICE: 11/30/2020. HISTORY OF PRESENT ILLNESS: The patient is a 55-year-old right hand dominant gentleman who had previously undergone right rotator cuff repair with progressive worsening right shoulder pain and weakness. He underwent an MRI, which revealed a full-thickness supraspinatus tear. He has tried activity modifications and home exercise program without relief. Due to functional impairment and failure to improve with conservative measures, the patient has elected to proceed with surgical intervention. REVIEW OF SYSTEMS: No chest pain, no shortness of breath, no dysuria. PAST MEDICAL HISTORY: Irritable bowel syndrome, chronic bronchitis, obesity, type 2 diabetes, COPD, depression, pancreatitis, psoriasis, radiculopathy, reflux, hyperlipidemia and sleep apnea. PAST SURGICAL HISTORY: Right rotator cuff repair, right knee arthroscopy, right elbow internal fixation, cholecystectomy, left shoulder rotator cuff repair, and lumbar spine. FAMILY HISTORY: Significant for diabetes, hypertension, and cancer. PRIMARY CARE PROVIDER: Dr. Flanagan. MEDICATIONS: Ibuprofen, alprazolam, Bydureon, pantoprazole, ProAir, loratadine, glimepiride, Farxiga, Lipitor, vitamin D, Imitrex, metformin, metoprolol, clobetasol, Sudafed, cimetidine, and venlafaxine. ALLERGIES: BIAXIN, CHANTIX, MORPHINE, ZITHROMAX, HYDROCODONE, KETACONAZOLE, HONEY BEE VENOM AND LYRICA. SOCIAL HISTORY: The patient is a former smoker. Denies alcohol use. PHYSICAL EXAMINATION: GENERAL: The patient is well-developed, well-nourished, in no acute distress. HEENT: Normocephalic, atraumatic. Pupils are equal, round and reactive to light. Oropharynx is clear. NECK: Supple, no lymphadenopathy. LUNGS: Clear to auscultation bilaterally. HEART: Regular rate and rhythm. ABDOMEN: Soft, nontender, nondistended. EXTREMITIES: Right shoulder demonstrates active forward elevation of 170 degrees, external rotation is 90 degrees and internal rotation is to 80 degrees. He has weakness with abduction and external rotation. Positive Neer's and positive Hawkin sign. Negative Spurling's maneuver. Sensation is intact to his right upper extremity. IMPRESSION: Right shoulder rotator cuff tear. PLAN: Right shoulder arthroscopy, biceps tenotomy, open rotator cuff repair. The risks, benefits, options, ramifications and recovery were discussed at length with the patient. He understands and wishes to proceed. Job ID: [id number] DocumentID: [id number] Dictated Date: 11/17/2020 13:34:01 Manager Car Date: 11/17/2020 14:09:00 Dictated By: IVETTE BARNETT MD
[2020-11-30] VITALS (11 sets, daily range): BP systolic 112–133; BP diastolic 74–90
[~2020-11-30] VITALS: Ht 170.2 cm; Wt 110.9 kg
[~2020-11-30 08:40] MED LIST changes: +CETI10TA49 PO; +DAPA1TAB3 PO; +FENO145T2 PO; +IBUP-1780 PO; +INSU300I SQ; +RIZA10TA37 PO; +ROSU40TA23 PO; +oxyCODONE/APAP 5/325MG (PERCOCET 5) TABLET PO PRN
[2020-11-30] MEDS ORDERED: OXYC1TAB87 PO ×4 (09:22→11:09)
[2020-11-30] MEDS: LACTATED RINGERS 1,000 ML IV PRN ×2 (09:34→12:32)
[2020-11-30] MEDS ORDERED: SCOPOLAMINE 1.5 MG (TRANSDERM-SCOP) PATCH TOP ONE (09:45)
[2020-11-30] MEDS ORDERED: FAMOTIDINE 20MG/2ML IV (PEPCID) IV ONE (09:45)
[2020-11-30] MEDS ORDERED: ONDANSETRON 4 MG/2 ML (SDV) Z0FRAN IV ONE (09:45)
[2020-11-30] MEDS ORDERED: fentaNYL INJ 100 MCG/2 ML AMP ONE (10:15)
[2020-11-30] MEDS ORDERED: ONDANSETRON 4 MG/2 ML (SDV) Z0FRAN ONE (10:15)
[2020-11-30] MEDS ORDERED: LIDOCAINE PF 2% 5 ML (XYLOCAINE) VIAL ONE (10:15)
[2020-11-30] MEDS ORDERED: proPOfol 200 MG/20 ML (DIPRIVAN) VIAL IV ONE (10:15)
[2020-11-30] MEDS ORDERED: ROCURONIUM 10 MG/ML 5 ML SYRINGE IV ONE (10:15)
[2020-11-30] MEDS ORDERED: MIDAZOLAM 2 MG/2 ML (VERSED) VIAL ONE (10:17)
--- NOTE | 2020-11-30 11:07 | Progress Note-Pre Operative ---
Pre-Operative Progress Note H&P Reviewed The H&P was reviewed, patient examined and no changes noted. Date Seen by Provider: Nov 30, 2020 Time Seen by Provider: 11:00 Date H&P Reviewed: Nov 30, 2020 Time H&P Reviewed: 07:11 Pre-Operative Diagnosis: right rotator cuff tear IVETTE BARNETT MD Nov 30, 2020 11:07
--- NOTE | 2020-11-30 11:08 | Progress Note-Post Operative ---
Post-Operative Progess Note Surgeon (s)/Sample Collector (s) Surgeon IVETTE BARNETT MD Sample Collector: Sharif Pearce Pre-Operative Diagnosis right rotator cuff tear Post-Operative Diagnosis right rotator cuff tear Procedure & Operative Findings Date of Procedure 11/30/20 Procedure Performed/Findings right shoulder arthroscopic acromioplasty and open rotator cuff repair Anesthesia Type GETA Estimated Blood Loss Estimated blood loss (mL): minimal Specimens/Packing Specimens Removed none Packing: none IVETTE BARNETT MD Nov 30, 2020 11:08
[2020-11-30] MEDS ORDERED: ceFAZolin INJECTION 1,000 MG ONE (11:15)
[2020-11-30] MEDS ORDERED: WATER (STERILE) FOR INJECTION 10 ML ONE (11:17)
[2020-11-30] MEDS ORDERED: ceFAZolin INJECTION 1,000 MG in WATER (STERILE) FOR INJECTION 10 ML IV ONE (11:30)
[2020-11-30] MEDS ORDERED: PHENYLEPHRINE 100 MCG/ML 10 ML (ANESTHESIA) SYR ONE (12:05)
[2020-11-30] MEDS ORDERED: GLYCOPYRROLATE 0.2 MG/ML (ROBINUL) 2 ML VIAL ONE (12:16)
[2020-11-30] MEDS ORDERED: NEOSTIGMINE 3 MG/3 ML VIAL ONE (12:16)
[2020-11-30] MEDS ORDERED: SEVOFLURANE (ULTANE) 15 ML INHAL SOLN ONE (12:17)
[2020-11-30] MEDS ORDERED: HYDROmorphone 2 MG/ML VIAL (DILAUDID) ONE (12:44)
[2020-11-30] MEDS ORDERED: ONDANSETRON 4 MG/2 ML (SDV) Z0FRAN IVP PRN (12:45)
[2020-11-30] MEDS ORDERED: HYDROmorphone 2 MG/ML VIAL (DILAUDID) IV ONE (12:45)
--- NOTE | 2020-11-30 17:44 | OPERATIVE REPORT ---
DATE OF SERVICE: 11/30/2020 PREOPERATIVE DIAGNOSIS: Right rotator cuff tear. POSTOPERATIVE DIAGNOSIS: Right rotator cuff tear. PROCEDURES: 1. Right shoulder arthroscopic acromioplasty. 2. Right shoulder open rotator cuff repair. SURGEON: Thad Barnett MD SIGN FABRICATOR: Sharif Pearce, who assisted throughout the procedure and closed the incisions. ANESTHESIA: General endotracheal by Dr. Hobson. ESTIMATED BLOOD LOSS: Minimal. DRAINS: None. COMPLICATIONS: None. POSTOPERATIVE PLAN: Routine protocol with passive range of motion and sling wear for 4 weeks. The patient was transferred to the recovery room awake and stable condition. STATEMENT OF MEDICAL NECESSITY: The patient is a 55-year-old gentleman who previously underwent right rotator cuff repair but had increased pain approximately two years ago. Due to COVID and his 's health, the patient was not able to undergo surgery and was treated with home exercise program and injections without relief. Due to progressive symptoms and functional impairment, the patient elected to proceed with surgical intervention. Examination under anesthesia revealed forward elevation of 170 degrees, external rotation 90 degrees and internal rotation of 70 degrees. Arthroscopic findings demonstrated an absent biceps anchor. No significant glenoid or humeral head articular wear. There was a 2 x 1 cm supraspinatus tear. The remainder of the rotator cuff was intact. The labrum demonstrated no other abnormalities. Subacromial space demonstrated moderate bursitis with sloping of the anterolateral acromion. DESCRIPTION OF PROCEDURE: After risks and benefits of procedure were discussed and questions were answered, informed consent was signed and placed on chart, the operative site was confirmed in the preoperative holding area initialed by the surgeon. The patient was then transported to the operating room. After adequate levels of general endotracheal anesthetic were obtained, a timeout was called, confirming the operative site. Examination under anesthesia was performed with above findings noted. The right shoulder and upper extremity were prepped and draped in the usual sterile fashion. Shoulder joint was injected with 20 mL fluid and standard posterior portal was placed. Diagnostic arthroscopy was carried out with above findings noted. The scope was then redirected in the subacromial space and lateral portal was created. Bursectomy was performed and the acromion was planed to a flat type 1 acromion. The lateral portal was then extended. The deltoid was split in line with its fibers leaving attached the acromion. The cuff tear was identified and a single corkscrew anchor was placed using a modified Andrea-Woodrow repair. An excellent repair was obtained, which brought the rotator cuff to its eklutna site with no undue tension noted at the repair site. The wound was copiously irrigated and the deltoid was repaired in [id number] fashion using #2 FiberWire in a [id number] interrupted fashion with an excellent repair obtained. The wound was further irrigated and 3-0 Vicryl was used to reapproximate subcutaneous tissue. Skin was closed with 4-0 nylon in running alternating horizontal mattress fashion. The port sites were closed with 4-0 nylon in simple interrupted fashion. The shoulder joint was injected with Duramorph. The incisions were infiltrated with plain Marcaine. A soft dressing and sling were applied and the patient was transferred to the recovery room awake and in stable condition. Job ID: [id number] DocumentID: [id number] Dictated Date: 11/30/2020 12:22:12 Hospice Social Worker Date: 11/30/2020 17:43:59 Dictated By: THAD BARNETT MD
--- NOTE | 2020-12-02 10:47 | Anesthesia-General Post-Op ---
General Patient Condition Mental Status/LOC: Same as Preop Cardiovascular: Satisfactory Nausea/Vomiting: Absent Respiratory: Satisfactory Pain: Controlled Complications: Absent Post Op Complications Complications None Follow Up Care/Instructions Patient Instructions None needed. Anesthesia/Patient Condition Patient Condition Patient was seen on 11-30-20 at approximately 1330 and he was doing well, C/O some shoulder pain which is to be expected, stable vital signs, no apparent adverse anesthesia problems. STEPHANY BROOKS DO Dec 02, 2020 10:47
== END 2020-11-30 14:35 | disposition home or self-care (01) ==
LOC: SDC 08:40
PROVIDERS: ATTEND Orthopaedic Surgery
DX: M75.101 Unspecified rotator cuff tear or rupture of right shoulder, not specified as traumatic (principal); M54.10 Radiculopathy, site unspecified; K58.9 Irritable bowel syndrome, unspecified; E66.9 Obesity, unspecified; E11.9 Type 2 diabetes mellitus without complications; J44.9 Chronic obstructive pulmonary disease, unspecified; F32.9 Major depressive disorder, single episode, unspecified; K21.9 Gastro-esophageal reflux disease without esophagitis; E78.5 Hyperlipidemia, unspecified; G47.30 Sleep apnea, unspecified; Z79.84 Long term (current) use of oral hypoglycemic drugs; Z90.49 Acquired absence of other specified parts of digestive tract; Z80.9 Family history of malignant neoplasm, unspecified; Z82.49 Family history of ischemic heart disease and other diseases of the circulatory system
CPT/HCPCS: 23412; 29822; 82947; 87081; C1713

== ENCOUNTER 2020-12-02 12:30 | Emergency (ER) | payer MEDICAID ==
[~2020-12-02] VITALS: Ht 170 cm; Wt 111.0 kg
[~2020-12-02 12:30] MED LIST changes: +OXYC1TAB87 PO; -oxyCODONE/APAP 5/325MG (PERCOCET 5) TABLET PO PRN
[2020-12-02] MEDS ORDERED: KETOROLAC 60 MG/2 ML VIAL IM STA (12:52)
[2020-12-02] MEDS ORDERED: HYDROmorphone 2 MG/ML VIAL (DILAUDID) IM STA (12:52)
--- NOTE | 2020-12-02 12:59 | ED Upper Extremity ---
General Chief Complaint: Upper Extremity Stated Complaint: RIGHT SHOULDER PAIN Source: patient, old records, spouse History of Present Illness Date Seen by Provider: Dec 02, 2020 Time Seen by Provider: 12:38 Initial Comments 55 yo male presenting to the ED with complaints of right shoulder pain. He had arthroscopic surgery on joint and rotator cuff with Dr. Mcdaniel on SaturdayNovember 30. He states he did not have that much pain but overnight and this morning he was having severe pain. He has been taking Oxycodone 5/325 but was still having pain. He called the office to try and get in touch with Dr. Mcdaniel but was told that he was out of the office for today. When he tried to reach his primary care provider he was told. Patient ambulance and was also in the office. He states he has had prior rotator cuff and shoulder surgery and is never been this painful. He denies any fever or chills. He has no drainage from the surgery sites. There is no increased redness to the shoulder. He denies any fall or trauma since surgery. Pain/Injury Location: right shoulder Modifying Factors: Worse With Jarring, Worse With Movement Allergies and Home Medications Allergies Coded Allergies: hydrocodone (Verified Allergy, Severe, ANAPHYLAXIS, PT HAS RECEIVED PERCOCET IN THE PAST, 03/02/20) morphine (Unverified Allergy, Intermediate, RASH, THROAT SWELLS, 03/02/20) azithromycin (Unverified Allergy, Mild, 03/02/20) clarithromycin (Unverified Allergy, Mild, 03/02/20) varenicline (Unverified Allergy, Mild, 03/02/20) bee venom protein (honey bee) (Verified Allergy, Unknown, 11/24/20) insulin glargine (Verified Allergy, Unknown, Nausea, 11/24/20) Home Medications Albuterol Sulfate 90 Mcg Aer.pow.ba, 2 PUFF IH Q6H PRN for SHORTNESS OF BREATH, (Reported) Alprazolam 0.5 Mg Tablet, 0.5 MG PO TID PRN for ANXIETY, (Reported) Aspirin 81 Mg Tab.chew, 81 MG PO DAILY, (Reported) Cetirizine HCl 10 Mg Tablet, 5 MG PO DAILY, (Reported) Dapagliflozin/Metformin HCl 1 Each Tab.bp.24h, 2 EACH PO DAILY, (Reported) Famotidine 40 Mg Tablet, 40 MG PO DAILY, (Reported) Fenofibrate Nanocrystallized 145 Mg Tablet, 145 MG PO DAILY, (Reported) Gabapentin 600 Mg Tablet, 600 MG PO TID, (Reported) Glimepiride 4 Mg Tablet, 4 MG PO BID, (Reported) Hydrochlorothiazide 25 Mg Tablet, 25 MG PO DAILY, (Reported) Ibuprofen 800 Mg Tablet, 800 MG PO Q8H PRN for PAIN-MILD, (Reported) Insulin Glargine,Hum.rec.anlog 300 Unit/1 Ml Insuln.pen, 24 UNIT SQ DAILY, (Reported) Metoprolol Tartrate 50 Mg Tablet, 50 MG PO BID, (Reported) Oxycodone HCl/Acetaminophen 1 Each Tablet, 1 TAB PO Q4H Prescribed by: IVETTE MCDANIEL on 11/30/20 1110 Oxycodone HCl/Acetaminophen 1 Each Tablet, 1 EACH PO Q4H PRN for PAIN-SEVERE (8- 10) Prescribed by: SAHCIN KHAN on 12/02/20 1435 Pantoprazole Sodium 40 Mg Tablet.dr, 40 MG PO DAILY, (Reported) Rizatriptan Benzoate 10 Mg Tablet, 10 MG PO PRN PRN for MIGRAINE, (Reported) Rosuvastatin Calcium 40 Mg Tablet, 40 MG PO DAILY, (Reported) Patient Home Medication List Home Medication List Reviewed: Yes Review of Systems Constitutional: No chills, No fever EENTM: no symptoms reported Respiratory: no symptoms reported Cardiovascular: no symptoms reported Gastrointestinal: no symptoms reported Genitourinary: no symptoms reported Musculoskeletal: see HPI, joint pain (right shoulder and trapezius pain and spasm) Skin: No change in color Psychiatric/Neurological: Tingling (RUE) Past Ruyfbly-Sxlhqw-Cyxxhu Hx Patient Social History Tobacco Use?: No Substance use?: No Alcohol Use?: No Pt feels they are or have been: No Immunizations Up To Date Tetanus Booster (TDap): Unknown Seasonal Allergies Seasonal Allergies: Yes Past Medical History Surgeries: Yes (LUNG SURGERY, RIGHT KNEE x3, CHEKO SHOULDER, RIGHT ELBOW, CTR, EAR (SKIN CA)) Gallbladder, Orthopedic, Vasectomy Respiratory: Yes Asthma, Sleep Apnea, COPD Currently Using CPAP: No Currently Using BIPAP: No Cardiac: Yes (DVT x3 BEHIND KNEE) Deep Vein Thrombosis, High Cholesterol, Hypertension Neurological: Yes Headaches /Migraines Reproductive Disorders: No Sexually Transmitted Disease: No HIV/AIDS: No Genitourinary: No Gastrointestinal: Yes Gastroesophageal Reflux, Diverticulosis, Polyps, Ulcer, Gall Bladder Disease, Irritable Bowel Musculoskeletal: Yes (SPINAL STENOSIS, OSTEOARTHRITIS) Degenerate Disk Disease, Arthritis, Chronic Back Pain Endocrine: Yes Diabetes, Non-Insulin dep HEENT: Yes (GLASSES) Loss of Vision: Denies Hearing Impairment: Hard of Hearing Cancer: Yes (L EAR ) Skin Did You Recieve Any Treatments: Yes What Type of Treatment Did You: Surgical Intervention Psychosocial: Yes Anxiety Integumentary: Yes (DERMATITIS) Eczema Blood Disorders: No Adverse Reaction/Blood Tranf: No (N/A) Physical Exam Vital Signs Vital Signs - First Documented 12/02/20 12/02/20 12:41 14:37 Temp 36.8 Pulse 78 Resp 17 B/P (MAP) 127/103 (111) Pulse Ox 96 O2 Delivery Room Air Capillary Refill : Height, Weight, BMI Height: 5'7.00" Weight: 255lbs. 8.0oz. [id number]; 38.28 BMI Method:Actual General Appearance: moderate distress HEENT: PERRL/EOMI Cardiovascular: normal peripheral pulses, regular rate, rhythm Respiratory: chest non-tender, lungs clear, normal breath sounds Shoulder: limited ROM (right shoulder due to pain and is in sling), pain (right shoulder with palpation, especially posterior aspect), soft tissue tenderness (right shoulder and trapezius muscle) Neurologic/Psychiatric: alert, oriented x 3 Skin: normal color, warm/dry Progress/Results/Core Measures Results/Orders My Orders Orders - SACHIN KHAN MD Hydromorphone Injection (Dilaudid Inject (12/02/20 12:52) Ketorolac Injection (Toradol Injection) (12/02/20 12:52) Vital Signs/I&O 12/02/20 12/02/20 12:41 14:37 Temp 36.8 36.8 Pulse 78 78 Resp 17 17 B/P (MAP) 127/103 (111) 132/82 (111) Pulse Ox 96 O2 Delivery Room Air Progress Progress Note #1: Progress Note pt has had dilaudid before and tolerated it so given an IM dose of 1.5 mg along with a Toradol 60 mg IM dose for inflammation and pain. Attempt to call Dr. Mcdaniel and left a voice message to see if he would call back. Can try to increase the Oxycodone medicine to 10/325 and see if that helps control his pain until he can follow up with Dr. Mcdaniel through the clinic on Saturday. Progress Note #2: Progress Note After about 45 minutes the medications were helping and patient was more calm and less pain. Discussed with him about discharging on the higher strength of oxycodone. Dr. Mcdaniel did call back prior to patient discharge and stated that he had been involved in a work case and was just now free to be able to call back. He was agreeable with the plan of treating patient with the higher dose of medicine for the weekend. Departure Impression Primary Impression: Right shoulder pain Qualified Codes: M25.511 - Pain in right shoulder Additional Impressions: Trapezius muscle spasm Post-op pain Disposition: HOME, SELF-CARE Condition: Improved Departure-Patient Inst. Decision time for Depature: 14:29 Referrals: TRAV FLANAGAN MD (PCP/Family) Primary Care Physician IVETTE MCDANIEL MD Patient Instructions: Muscle Spasm ED, Shoulder Pain ED, Opioids for Short-Term Treatment of Pain ED Add. Discharge Instructions: Stop the 5/325 mg strength Oxycodone and take the 10/325 mg strength instead. Follow up with Dr. Mcdaniel and Dr. Flanagan for continued concerns regarding muscle spasms and post-operative pain Take Miralax or a stimulant laxative to help with moving your bowels as the Oxycodone will cause constipation. All discharge instructions reviewed with patient and/or family. Voiced understanding. Scripts Oxycodone HCl/Acetaminophen (Oxycodone-Acetaminophen 10-325) 1 Each Tablet 1 EACH PO Q4H PRN for PAIN-SEVERE (8-10) MDD 3 for 5 Days, #30 TAB 0 Refills Prov: SACHIN KHAN MD 12/02/20 SACHIN KHAN MD Dec 02, 2020 12:59
[2020-12-02] MEDS ORDERED: OXYC-556 PO ×2 (14:28→14:34)
[2020-12-02 14:37] VITALS: BP 132/82
== END 2020-12-02 14:40 | disposition home or self-care (01) ==
LOC: EDUNIT# 12:30 → ER FS 12:32
DX: G89.18 Other acute postprocedural pain (principal); M25.511 Pain in right shoulder; M62.838 Other muscle spasm; I10 Essential (primary) hypertension; E11.9 Type 2 diabetes mellitus without complications; J44.9 Chronic obstructive pulmonary disease, unspecified; E78.00 Pure hypercholesterolemia, unspecified; G43.909 Migraine, unspecified, not intractable, without status migrainosus; K21.9 Gastro-esophageal reflux disease without esophagitis; G89.29 Other chronic pain; M54.9 Dorsalgia, unspecified; F41.9 Anxiety disorder, unspecified; Z79.82 Long term (current) use of aspirin; Z79.4 Long term (current) use of insulin; Z79.1 Long term (current) use of non-steroidal anti-inflammatories (NSAID); Z79.899 Other long term (current) drug therapy; Z88.5 Allergy status to narcotic agent; Z88.8 Allergy status to other drugs, medicaments and biological substances
CPT/HCPCS: 99284

== ENCOUNTER 2022-10-15 05:48 | Emergency (ER) | payer MEDICAID ==
[~2022-10-15 05:48] MED LIST changes: +OXYC-556 PO
--- NOTE | 2022-10-15 06:07 | ED Chest Pain ---
General Stated Complaint: CHEST PAIN|LEFT ARM PAIN Source: patient (SACHIN KHAN MD) History of Present Illness Date Seen by Provider: October 15, 2022 Time Seen by Provider: 06:01 Initial Comments 57-year-old male with PMH of HTN/DM 2/CAD with a past cath that showed 50% blockage as per patient/anxiety/GERD/seasonal allergies/arthritis, is here with complaints of chest pain which has on and off all night. Patient had a panic attack last night and began having chest pain since then. Patient was on Xanax and patient's PCP stopped it approximately a month ago and started him on Klonopin. Patient stopped Klonopin 12 days ago on his own, and has been extremely anxious since then. Patient states that his chest pain sometimes radiates down his left arm and so he was concerned that it might be a heart attack so he came to the ER. Denies palpitations, shortness of breath, ab dominal pain, fever and chills, dizziness. (ANTHONY HA MD) Radiation: arms (left) Prior CP/Workup: cardiac cath ASA po CUSTOM SKI MAKER: No NTG SL CUSTOM SKI MAKER: No Associated Symptoms: No abdominal pain, No back pain, No diaphoresis, No edema, No fatigue, No fever/chills, No nausea/vomiting, No shortness of breath, No syncope (SACHIN KHAN MD) Allergies and Home Medications Allergies Coded Allergies: hydrocodone (Verified Allergy, Severe, ANAPHYLAXIS, PT HAS RECEIVED PERCOCET IN THE PAST, 03/02/20) morphine (Unverified Allergy, Intermediate, RASH, THROAT SWELLS, 03/02/20) azithromycin (Unverified Allergy, Mild, 03/02/20) clarithromycin (Unverified Allergy, Mild, 03/02/20) varenicline (Unverified Allergy, Mild, 03/02/20) bee venom protein (honey bee) (Verified Allergy, Unknown, 11/24/20) insulin glargine (Verified Allergy, Unknown, Nausea, 11/24/20) Patient Home Medication List Home Medication List Reviewed: Yes (ANTHONY HA MD) Home Medication List Reviewed: Yes (SACHIN KHAN MD) Albuterol Sulfate (Proair Respiclick) 90 Mcg Aer.pow.ba, 2 PUFF IH Q6H PRN for SHORTNESS OF BREATH, (Reported) Entered as Reported by: VANI BLUM on 11/08/16 0936 Alprazolam (Xanax) 0.5 Mg Tablet, 0.5 MG PO TID PRN for ANXIETY, (Reported) Entered as Reported by: VANI BLUM on 11/08/16 0936 Aspirin (Aspirin) 81 Mg Tab.chew, 81 MG PO DAILY, (Reported) Entered as Reported by: VANI BLUM on 03/02/20 1235 Cetirizine HCl (Zyrtec) 10 Mg Tablet, 5 MG PO DAILY, (Reported) Entered as Reported by: MUNA HANCOCK on 11/24/20 0954 Dapagliflozin/Metformin HCl (Xigduo Xr 5 mg-1,000 mg Tablet) 1 Each Tab.bp.24h, 2 EACH PO DAILY, (Reported) Entered as Reported by: MUNA HANCOCK on 11/24/20 0954 Famotidine (Famotidine) 40 Mg Tablet, 40 MG PO DAILY, (Reported) Entered as Reported by: VANI BLUM on 03/02/20 1235 Fenofibrate Nanocrystallized (Tricor) 145 Mg Tablet, 145 MG PO DAILY, (Reported) Entered as Reported by: MUNA HANCOCK on 11/24/20 0954 Gabapentin (Gabapentin) 600 Mg Tablet, 600 MG PO TID, (Reported) Entered as Reported by: VANI BLUM on 03/02/20 1235 Glimepiride (Glimepiride) 4 Mg Tablet, 4 MG PO BID, (Reported) Entered as Reported by: VANI BLUM on 03/02/20 1235 Hydrochlorothiazide (Hydrochlorothiazide) 25 Mg Tablet, 25 MG PO DAILY, (Reported) Entered as Reported by: VANI BLUM on 03/02/20 1235 Ibuprofen (Ibuprofen) 800 Mg Tablet, 800 MG PO Q8H PRN for PAIN-MILD, (Reported) Entered as Reported by: MUNA HANCOCK on 11/24/20 0954 Insulin Glargine,Hum.rec.anlog ([place] Solostar) 300 Unit/1 Ml Insuln.pen, 24 UNIT SQ DAILY, (Reported) Entered as Reported by: MUNA HACNOCK on 11/24/20 0954 Metoprolol Tartrate (Metoprolol Tartrate) 50 Mg Tablet, 50 MG PO BID, (Reported) Entered as Reported by: VANI BLUM on 03/02/20 1235 Oxycodone HCl/Acetaminophen (Percocet 5-325 mg Tablet) 1 Each Tablet, 1 TAB PO Q4H Prescribed by: IVETTE BARNETT on 11/30/20 1110 Oxycodone HCl/Acetaminophen (Oxycodone-Acetaminophen 10-325) 1 Each Tablet, 1 EACH PO Q4H PRN for PAIN-SEVERE (8-10) Prescribed by: SACHIN KHAN on 12/02/20 1435 Pantoprazole Sodium (Pantoprazole Sodium) 40 Mg Tablet.dr, 40 MG PO DAILY, (Reported) Entered as Reported by: VANI BLUM on 03/02/20 1235 Rizatriptan Benzoate (Rizatriptan) 10 Mg Tablet, 10 MG PO PRN PRN for MIGRAINE, (Reported) Entered as Reported by: MUNA HANCOCK on 11/24/20 0954 Rosuvastatin Calcium (Rosuvastatin Calcium) 40 Mg Tablet, 40 MG PO DAILY, (Reported) Entered as Reported by: MUNA HANCOCK on 11/24/20 0954 Review of Systems Review of Systems Constitutional: no symptoms reported EENTM: No Symptoms Reported Respiratory: No Symptoms Reported Cardiovascular: Chest Pain Gastrointestinal: No Symptoms Reported Genitourinary: No Symptoms Reported Musculoskeletal: no symptoms reported Skin: no symptoms reported Psychiatric/Neurological: Anxiety Endocrine: No Symptoms Reported Hematologic/Lymphatic: No Symptoms Reported (ANTHONY HA MD) Past Jkncfjp-Sorfnq-Gwalvd Hx Immunizations Up To Date Tetanus Booster (TDap): Unknown (ANTHONY HA MD) Seasonal Allergies Seasonal Allergies: Yes (ANTHONY HA MD) Past Medical History Surgeries: Yes (LUNG SURGERY, RIGHT KNEE x3, CHEKO SHOULDER, RIGHT ELBOW, CTR, EAR (SKIN CA)) Gallbladder, Orthopedic, Vasectomy Respiratory: Yes Asthma, Sleep Apnea, COPD Currently Using CPAP: No Currently Using BIPAP: No Cardiac: Yes (DVT x3 BEHIND KNEE) Deep Vein Thrombosis, High Cholesterol, Hypertension Neurological: Yes Headaches /Migraines Reproductive Disorders: No Sexually Transmitted Disease: No HIV/AIDS: No Genitourinary: No Gastrointestinal: Yes Gastroesophageal Reflux, Diverticulosis, Polyps, Ulcer, Gall Bladder Disease, Irritable Bowel Musculoskeletal: Yes (SPINAL STENOSIS, OSTEOARTHRITIS) Degenerate Disk Disease, Arthritis, Chronic Back Pain Endocrine: Yes Diabetes, Non-Insulin dep HEENT: Yes (GLASSES) Loss of Vision: Denies Hearing Impairment: Hard of Hearing Cancer: Yes (L EAR ) Skin Did You Recieve Any Treatments: Yes What Type of Treatment Did You: Surgical Intervention Psychosocial: Yes Anxiety Integumentary: Yes (DERMATITIS) Eczema Blood Disorders: No Adverse Reaction/Blood Tranf: No (N/A) (ANTHONY HA MD) Surgery/Hospitalization HX: Anxiety, Hypertension, Diabetes Insulin Dependent, Migraine headaches, GERD, Seasonal Allergies, Hyperlipidemia (SACHIN KHAN MD) Physical Exam Vital Signs Vital Signs - First Documented 10/15/22 05:51 Temp 36.8 Pulse 105 Resp 20 B/P (MAP) 174/94 (120) Pulse Ox 97 O2 Delivery Room Air (SACHIN KHAN MD) Vital Signs Capillary Refill : (ANTHONY HA MD) Height, Weight, BMI Height: 5'7.00" Weight: 255lbs. 8.0oz. 115.770319jn; 38.00 BMI Method:Actual General Appearance: No Apparent Distress, WD/WN, Anxious, Obese HEENT: PERRL/EOMI, Moist Mucous Membranes Neck: Full Range of Motion, Supple Respiratory: Chest Non Tender, Lungs Clear, Normal Breath Sounds Cardiovascular: No Edema, No JVD, Normal Peripheral Pulses, Tachycardia Gastrointestinal: Normal Bowel Sounds, Non Tender, Soft Extremity: Normal Range of Motion Neurologic/Psychiatric: Alert, Oriented x3, No Motor/Sensory Deficits, Other (Extreme anxiety) Skin: Normal Color (ANTHONY HA MD) Progress/Results/Core Measures Results/Orders Lab Results Laboratory Tests Test 10/15/22 06:00 10/15/22 06:15 10/15/22 07:43 Range/Units White Blood Count 11.7 H 4.3-11.0 10^3/uL Red Blood Count 6.00 H 4.30-5.52 10^6/uL Hemoglobin 18.2 H 13.3-17.7 g/dL Hematocrit 53 40-54 % Mean Corpuscular Volume 88 80-99 fL Mean Corpuscular Hemoglobin 30 25-34 pg Mean Corpuscular Hemoglobin Concent 35 32-36 g/dL Red Cell Distribution Width 13.9 10.0-14.5 % Platelet Count 202 130-400 10^3/uL Mean Platelet Volume 9.5 9.0-12.2 fL Immature Granulocyte % (Auto) 0 % Neutrophils (%) (Auto) 64 42-75 % Lymphocytes (%) (Auto) 28 12-44 % Monocytes (%) (Auto) 7 0-12 % Eosinophils (%) (Auto) 1 0-10 % Basophils (%) (Auto) 0 0-10 % Neutrophils # (Auto) 7.5 1.8-7.8 10^3/uL Lymphocytes # (Auto) 3.3 1.0-4.0 10^3/uL Monocytes # (Auto) 0.8 0.0-1.0 10^3/uL Eosinophils # (Auto) 0.1 0.0-0.3 10^3/uL Basophils # (Auto) 0.0 0.0-0.1 10^3/uL Immature Granulocyte # (Auto) 0.0 0.0-0.1 10^3/uL Prothrombin Time 11.9 L 12.2-14.7 SEC INR Comment 0.8 0.8-1.4 Activated Partial Thromboplast Time 23 L 24-35 SEC D-Dimer 0.28 0.00-0.49 UG/ML Sodium Level 135 135-145 MMOL/L Potassium Level 3.7 3.6-5.0 MMOL/L Chloride Level 96 L 98-107 MMOL/L Carbon Dioxide Level 27 21-32 MMOL/L Anion Gap 12 5-14 MMOL/L Blood Urea Nitrogen 19 H 7-18 MG/DL Creatinine 0.79 0.60-1.30 MG/DL Estimat Glomerular Filtration Rate 103 BUN/Creatinine Ratio 24 Glucose Level 145 H 70-105 MG/DL Calcium Level 10.4 H 8.5-10.1 MG/DL Corrected Calcium 10.0 8.5-10.1 MG/DL Magnesium Level 2.0 1.6-2.4 MG/DL Total Bilirubin 1.2 H 0.1-1.0 MG/DL Aspartate Amino Transf (AST/SGOT) 27 5-34 U/L Alanine Aminotransferase (ALT/SGPT) 42 0-55 U/L Alkaline Phosphatase 71 40-136 U/L Troponin I < 0.30 < 0.30 <0.30 NG/ML Pro-B-Type Natriuretic Peptide 59.3 <125.0 PG/ML Total Protein 8.0 6.4-8.2 GM/DL Albumin 4.5 3.2-4.5 GM/DL Serum Alcohol < 10 <10 MG/DL Urine Color YELLOW Urine Clarity CLEAR Urine pH 7.0 5-9 Urine Specific [place] <=1.005 1.016-1.022 Urine Protein NEGATIVE NEGATIVE Urine Glucose (UA) 2+ H NEGATIVE Urine Ketones NEGATIVE NEGATIVE Urine Nitrite NEGATIVE NEGATIVE Urine Bilirubin NEGATIVE NEGATIVE Urine Urobilinogen 0.2 < = 1.0 MG/DL Urine Leukocyte Esterase NEGATIVE NEGATIVE Urine RBC (Auto) NEGATIVE NEGATIVE Urine RBC RARE /HPF Urine WBC RARE /HPF Urine Squamous Epithelial Cells RARE /HPF Urine Crystals NONE /LPF Urine Bacteria NEGATIVE /HPF Urine Casts NONE /LPF Urine Mucus SMALL H /LPF Urine Culture Indicated NO Urine Opiates Screen NEGATIVE NEGATIVE Urine Oxycodone Screen NEGATIVE NEGATIVE Urine Methadone Screen NEGATIVE NEGATIVE Urine Propoxyphene Screen NEGATIVE NEGATIVE Urine Barbiturates Screen NEGATIVE NEGATIVE Ur Tricyclic Antidepressants Screen NEGATIVE NEGATIVE Urine Phencyclidine Screen NEGATIVE NEGATIVE Urine Amphetamines Screen NEGATIVE NEGATIVE Urine Methamphetamines Screen NEGATIVE NEGATIVE Urine Benzodiazepines Screen NEGATIVE NEGATIVE Urine Cocaine Screen NEGATIVE NEGATIVE Urine Cannabinoids Screen NEGATIVE NEGATIVE (SACHIN KHAN MD) My Orders Orders - SACHIN KHAN MD Troponin I Fs (10/15/22 07:27) Ekg Tracing (10/15/22 07:27) (SACHIN KHAN MD) Medications Given in ED Current Medications Medications Dose Ordered Sig/[place] Route Start Time Stop Time Status Last Admin Dose Admin Aspirin 324 mg ONCE ONCE PO 10/15/22 06:15 10/15/22 06:16 DC 10/15/22 06:22 324 MG (SACHIN KHAN MD) Vital Signs/I&O 10/15/22 10/15/22 05:51 09:05 Temp 36.8 36.3 Pulse 105 86 Resp 20 17 B/P (MAP) 174/94 (120) 149/89 Pulse Ox 97 98 O2 Delivery Room Air Room Air (SACHIN KHAN MD) Progress Progress Note : Progress Note 1. CHEST PAIN: ACS RULE OUT: - CXR: no acute findings - EKG x1: sinus tachycardia - CBC/ CMP: - UDS:negative - Troponin x1:negative - BNP:neg - ASA 324mg given - Will sign out pt to morning physician for repeat troponin and EKG - Pt's environmental health officer is at [facility] 2. ACUTE ANXIETY: - Ativan 1mg iv STAT - Stopped Klonopin 12 days ago -Likely cause of chest pain, but will do work-up to rule out ACS due to pt's history . (ANTHONY HA MD) Progress Note #1: Time: 07:48 Progress Note I assumed care of the patient from Dr. Ha at shift change. Patient was improved after Ativan. Initial troponin was less than 0.3 and there was no acute ST elevation or ischemia on his electrocardiogram. Repeat troponin and electrocardiogram to be obtained now at 2 hours after arrival. His initial complete blood count had white blood cell count at the upper limit of normal at 11.7. His hemoglobin was elevated to 18.2 so he might be a smoker or hemoconcentrated. His comprehensive metabolic profile did not show acute significant abnormality with his electrolytes to account for his complaints. His D-dimer to help screen for blood clots and pulmonary embolism was negative at 0.22. Alcohol level was 0 and urine drug screen was negative for any illicit substances. He had 2+ glucose on his urinalysis but did not have nitrites, leukocyte esterase or signs of infection. His repeat electrocardiogram shows a sinus rhythm without ST elevation and appears similar to the initial tracing from 0557 with improved heart rate down to 84 from his sinus tachycardia of 112 previously. Progress Note #2: Time: 08:56 Progress Note The repeat troponin was still less than 0.3. His repeat electrocardiogram continues to show no ST elevation or ischemic changes. His heart rate has improved down into the 80s sinus rhythm from the 1 teens on arrival. Counseled to follow-up with his primary care and/or cardiology to see if they want to repeat any stress testing or additional imaging or testing. In terms of anxiety and taking Klonopin versus Xanax or other medicine for anxiety will defer to his primary care provider. Encouraged to take the clonazepam as needed currently until he can work something out with Dr. DEGROOT if needed for different medication. Encourage fluids and hydration. Counseled to return or be seen sooner if having worsening or new symptoms. (SACHIN KHAN MD) Initial ECG Impression Date: October 15, 2022 Initial ECG Impression Time: 05:57 Initial ECG Rate: 112 Initial ECG Rhythm: S.Tach Initial ECG Comparisson: No Previous ECG Available (ANTHONY HA MD) EKG : EKG Time: 07:47 Rate: 84 Rhythm: Normal Sinus ECG Comparisson: Changed (Improved heart rate from initial tracing) Comment On my personal interpretation and review of his electrocardiogram he has normal sinus rhythm with a heart rate of 84 bpm. AL interval [address] elevation. QT interval 356 ms with a QTc interval 397 ms. Overall appears similar to tracing from 556 other than improved tachycardia with heart rate decreasing from 112 bpm to 84 bpm. (SACHIN KHAN MD) Diagnostic Imaging Diagonstic Imaging: Xray Plain Films/CT/US/NM/MRI: chest Comments NAME: [facility] REC#: [id number] PT STATUS: REG ER : 1965 PHYSICIAN: ANTHONY HA MD ADMIT DATE: 10/15/22/ER FS Draft Date of Exam:10/15/22 CHEST 1 VIEW AP/PA ONLY PATIENT HISTORY: chest pain. TECHNIQUE: Single frontal view of the chest. COMPARISON: None FINDINGS: The lung volumes are normal. No focal consolidation is seen. No large pleural effusion or pneumothorax is seen. The cardiomediastinal silhouette is normal in size and contour. No acute osseous abnormality is seen. IMPRESSION: No acute pulmonary abnormality seen. Dictated on workstation # [id number] Dict: 10/15/22 0646 Trans: 10/15/22 0647 [facility] [id number] Interpreted by: INGA WELLS MD Electronically signed by: (ANTHONY HA MD) Reviewed: Reviewed by Me (SACHIN KHAN MD) Departure Impression Primary Impression: Chest pain Qualified Codes: R07.9 - Chest pain, unspecified Additional Impression: Acute anxiety Disposition: 01 HOME, SELF-CARE Condition: Improved Departure-Patient Inst. Decision time for Depature: 09:00 (SACHIN KHAN MD) Referrals: TRAV DEGROOT MD (PCP/Family) Primary Care Physician Patient Instructions: Anxiety, Adult ED, Chest Pain, Adult ED Add. Discharge Instructions: Your testing today has not shown signs of acute heart attack or heart damage. Check back with your primary care provider and they may want you to see Cardiology again or repeat stress testing. ANTHONY HA MD October 15, 2022 06:07 SACHIN KHAN MD October 15, 2022 07:55
[2022-10-15] MEDS ORDERED: ASPIRIN 81 MG CHEW (CHILDREN'S ASA) PO ONE (06:15)
[2022-10-15] MEDS ORDERED: LORazepam INJ 2 MG/ML (ATIVAN) VIAL IVP STA (06:21)
[2022-10-15 06:22] LABS: BASOPHILS % (AUTO) 0 % (0-10); EOSINOPHILS # (AUTO) 0.1 10^3/uL (0.0-0.3); EOSINOPHILS % (AUTO) 1 % (0-10); HEMATOCRIT 53 % (40-54); HEMOGLOBIN 18.2 g/dL (13.3-17.7); LYMPHOCYTES # (AUTO) 3.3 10^3/uL (1.0-4.0); LYMPHOCYTES % (AUTO) 28 % (12-44); MEAN CORPUSCULAR HEMOGLOBIN 30 pg (25-34); MEAN CORPUSCULAR HGB CONC 35 g/dL (32-36); MEAN CORPUSCULAR VOLUME 88 fL (80-99); MEAN PLATELET VOLUME 9.5 fL (9.0-12.2); MONOCYTES # (AUTO) 0.8 10^3/uL (0.0-1.0); MONOCYTES % (AUTO) 7 % (0-12); NEUTROPHILS # (AUTO) 7.5 10^3/uL (1.8-7.8); NEUTROPHILS % (AUTO) 64 % (42-75); PLATELET COUNT 202 10^3/uL (130-400); WHITE BLOOD COUNT 11.7 10^3/uL (4.3-11.0)
[2022-10-15] MEDS ORDERED: LORazepam INJ 2 MG/ML (ATIVAN) VIAL ONE (06:25)
[2022-10-15 06:30] LABS: BILIRUBIN,URINE NEGATIVE (NEGATIVE); CLARITY,URINE CLEAR; COLOR,URINE YELLOW; GLUCOSE, URINE (UA) 2+ (NEGATIVE); KETONES,URINE NEGATIVE (NEGATIVE); LEUKOCYTE ESTERASE ,URINE NEGATIVE (NEGATIVE); NITRITE,URINE NEGATIVE (NEGATIVE); PROTEIN,URINE NEGATIVE (NEGATIVE)
[2022-10-15 06:41] LABS: BACTERIA,URINE NEGATIVE /HPF; RBC,URINE RARE /HPF; SQUAMOUS EPITHELIAL CELL,UR RARE /HPF; WBC,URINE RARE /HPF
[2022-10-15 06:42] LABS: AMPHETAMINE SCREEN, URINE NEGATIVE (NEGATIVE); BARBITURATE SCREEN URINE NEGATIVE (NEGATIVE); BENZODIAZEPINES SCREEN URINE NEGATIVE (NEGATIVE); CANNABINOID SCREEN, URINE NEGATIVE (NEGATIVE); COCAINE SCREEN URINE NEGATIVE (NEGATIVE); METHADONE STAT NEGATIVE (NEGATIVE); OPIATE SCREEN URINE NEGATIVE (NEGATIVE); OXYCODONE STAT NEGATIVE (NEGATIVE); PROPOXYPHENE STAT NEGATIVE (NEGATIVE); TRICYCLIC ANTIDEPRESSANTS SCRE NEGATIVE (NEGATIVE)
[2022-10-15 06:45] LABS: FIBRIN DEGRADATION PRODUCTS 0.28 UG/ML (0.00-0.49); INR 0.8 (0.8-1.4); PROTHROMBIN TIME PATIENT 11.9 SEC (12.2-14.7)
--- NOTE | 2022-10-15 06:47 | Diagnostic Imaging Report ---
PATIENT HISTORY: chest pain. TECHNIQUE: Single frontal view of the chest. COMPARISON: None FINDINGS: The lung volumes are normal. No focal consolidation is seen. No large pleural effusion or pneumothorax is seen. The cardiomediastinal silhouette is normal in size and contour. No acute osseous abnormality is seen. IMPRESSION: No acute pulmonary abnormality seen. Dictated by: Dictated on workstation # [id number]
[2022-10-15 06:48] LABS: ALANINE AMINOTRANSFERASE 42 U/L (0-55); ALKALINE PHOSPHATASE 71 U/L (40-136); BILIRUBIN,TOTAL 1.2 MG/DL (0.1-1.0); BUN/CREATININE RATIO 24; CALCIUM 10.4 MG/DL (8.5-10.1); CARBON DIOXIDE 27 MMOL/L (21-32); CHLORIDE 96 MMOL/L (98-107); CREATININE SERUM 0.79 MG/DL (0.60-1.30); GFR ESTIMATED 103; GLUCOSE 145 MG/DL (70-105); POTASSIUM 3.7 MMOL/L (3.6-5.0); SODIUM 135 MMOL/L (135-145)
[2022-10-15 06:49] LABS: ALBUMIN 4.5 GM/DL (3.2-4.5)
[2022-10-15 09:05] VITALS: BP 149/89
== END 2022-10-15 09:05 | disposition home or self-care (01) ==
LOC: EDUNIT# 05:48 → ER FS 05:51
DX: R07.9 Chest pain, unspecified (principal); F41.9 Anxiety disorder, unspecified; R00.0 Tachycardia, unspecified; Z28.310 Unvaccinated for COVID-19
CPT/HCPCS: 36415; 71045; 80053; 80306; 81000; 83735; 83880; 84484; 85025; 85379; 85610; 85730; 93005; 93041; 99284; G0480; 80320